=== PATIENT | male | born 1990 | race Caucasian/White ===

== ENCOUNTER 2022-05-08 13:55 | Emergency (ER) | payer MEDICAID ==
[~2022-05-08] VITALS: Ht 172.7 cm; Wt 93.0 kg
[2022-05-08 14:21] LABS: Basophils # (auto) 0 10 ^3/uL (0-0.2); Basophils % (auto) 0.4 % (0.0-2.0); Eosinophils # (auto) 0.1 10 ^3/uL (0-0.8); Eosinophils % (auto) 1.1 % (0.0-7.0); Hematocrit 45.5 % (41.0-53.0); Hemoglobin 15.1 g/dL (13.5-17.5); Lymphocytes # (auto) 3.2 10 ^3/uL (0.4-5.4); Lymphocytes % (auto) 31.4 % (10.0-50.0); Mean Corpuscular Hemoglobin 28.1 pg (28.0-32.0); Mean Corpuscular Hgb Conc. 33.2 g/dL (32.0-36.0); Mean Corpuscular Volume 84.8 fL (80.0-100.0); Monocytes # (auto) 0.8 10 ^3/uL (0-1.3); Monocytes % (auto) 7.5 % (0.0-12.0); Neutrophils % (auto) 59.6 % (37.0-80.0); Nucleated Red Blood Cells % 0.1 %; Red Blood Cells 5.36 10^6/uL (4.5-5.90); Red Cell Distribution Width 13.7 % (11.8-14.3); White Blood Cell 10.1 10^3/uL (4.4-10.8)
[2022-05-08 15:01] LABS: Potassium 3.5 mmol/L (3.5-5.1)
[2022-05-08 15:08] LABS: BUN/Creatinine Ratio 18.6; Bilirubin, Total 1.4 mg/dL (0.2-1.0); Calcium 9.1 mg/dL (8.5-10.1); Total Protein 7.2 g/dL (6.4-8.2)
[2022-05-08 16:45] VITALS: BP 112/68
== END 2022-05-08 17:30 | disposition home or self-care (01) ==
LOC: EDBD 13:55 → ER 13:55
DX: R55 Syncope and collapse (principal); R42 Dizziness and giddiness
CPT/HCPCS: 36415; 71045; 71260; 74177; 80053; 83735; 83880; 84484; 85025; 85379; 93005; 99285; Q9967

== ENCOUNTER 2024-03-13 10:02 | Emergency (ER) | payer MEDICAID ==
[~2024-03-13] VITALS: Ht 172.7 cm; Wt 87.1 kg
[2024-03-13] MEDS ORDERED: CEPH500C PO (11:07)
[2024-03-13 11:16] VITALS: PULSE 99; RESP 18; O2SAT 96
[2024-03-13 11:18] VITALS: BP 146/95; PULSE 96; RESP 18; O2SAT 100
== END 2024-03-13 11:20 | disposition home or self-care (01) ==
LOC: ER 10:02
DX: J32.0 Chronic maxillary sinusitis (principal)
CPT/HCPCS: 70450; 82962